=== PATIENT | male | born 1970 | race Caucasian/White ===

== ENCOUNTER 2017-05-02 19:39 | Emergency (ER) | payer OTHER ==
[2017-05-02 19:40] VITALS: BP 144/75; PULSE 86; RESP 15; TEMP 97.6; O2SAT 95
--- NOTE | 2017-05-02 20:59 | PD ---
HPI Chief Complaint: Musculoskeletal Complaint Time Seen by Provider: 20:47 Travel History International Travel<30 days: No Contact w/Intl Traveler<30days: No Traveled to known affect area: No History of Present Illness HPI 46-year-old white male presents to emergency department with complains of left- sided neck and shoulder pain for the past 2 weeks. He denies any trauma. He states that he had been seen at [facility] last week and had an x-ray of his neck and shoulder. He follow-up with his doctor last week and was diagnosed with arthritis. He had been given pain medication on both occasions. He states that his pain has not resolved. He states that it is a cramping type pain with radiation down from the neck into his left arm. Symptoms are moderate. No alleviating factors. Symptoms are worse with movement. No recent illness or trauma. PFSH Past Medical History Narrative Medical Seizure disorder Seizures: Yes Tetanus Vaccination: < 5 Years Social History Alcohol Use: No Tobacco Use: No Allergies-Medications (Allergen,Severity, Reaction): Coded Allergies: No Known Allergies (Verified Allergy, Unknown, 05/02/17) Review of Systems Except as stated in HPI: all other systems reviewed are Neg Gastrointestinal: No: Nausea, Vomiting Genitourinary: No: Frequency, Dysuria Musculoskeletal: Positive: Arthralgias, Limited ROM, Cramping, Pain Skin: No Rash, No Itching Neurologic: No: Weakness, Headache, Paresthesia, Sensory Disturbance Physical Exam Narrative GENERAL: Well-developed, well-nourished in no acute distress. Nontoxic appearing. HEAD: Normocephalic, atraumatic. EYES: Pupils equal round and reactive. Extraocular motions intact. No scleral icterus. No injection or drainage. ENT: TMs clear without erythema. The external auditory canals clear. Nose: clear . Posterior pharynx is pink and moist. No tonsillar edema or exudate. Uvula midline. Airway patent. NECK: Trachea midline.Supple, tender to the left paraspinal muscles, moves head freely. No central bony tenderness or spasm. CARDIOVASCULAR: Regular rate and rhythm without murmurs, gallops, or rubs. RESPIRATORY: Clear to auscultation. Breath sounds equal bilaterally. No wheezes , rales, or rhonchi. GASTROINTESTINAL: Abdomen soft, non-tender, nondistended. No hepato-splenomegaly , or palpable masses. No guarding. EXTREMITIES: No clubbing, cyanosis, or edema. No joint tenderness, effusion, or edema noted. Patient complains of left periscapular and trapezius tenderness BACK: Nontender without deformity or crepitance. No flank tenderness. Data Data Last Documented VS Vital Signs Date Time Temp Pulse Resp B/P (MAP) Pulse Ox O2 Delivery O2 Flow Rate FiO2 05/02/17 19:40 97.6 86 15 144/75 (98) 95 Room Air MDM Medical Decision Making Medical Screen Exam Complete: Yes Emergency Medical Condition: Yes Medical Record Reviewed: Yes Differential Diagnosis MDM: High Differential diagnoses: Fracture, sprain, strain, dislocation, contusion, neurovascular injury, cervical radiculopathy Narrative Course A medical screening exam was performed: At the time of evaluation the presenting medical condition was determined not to be of an emergent nature. The patient was given the option of receiving additional care, but declined. Patient was given options for additional community resources from which to obtain care. The Patient Has Been advised to seek medical attention for their presenting complaint. The patient has been advised to return to the ER at any time if an emergent condition develops. Diagnosis Primary Impression: Encounter for medical screening examination Condition: Stable Alonso Juarez May 02, 2017 20:59
== END 2017-05-02 21:40 | disposition left against medical advice (07) ==
LOC: NEPD 19:39
DX: M54.2 Cervicalgia (principal); M25.512 Pain in left shoulder; Z86.69 Personal history of other diseases of the nervous system and sense organs; Z87.39 Personal history of other diseases of the musculoskeletal system and connective tissue
CPT/HCPCS: 99281